=== PATIENT | male | born 1940 | race Caucasian/White ===

== ENCOUNTER 2023-09-01 13:56 | Outpatient (AMB) | payer OTHER, SELFPAY ==
--- NOTE | 2023-09-01 14:01 | A.OFFVIS_ITS ---
Intake Vital Signs 09/01/23 14:05 Height 5 ft 2 in Weight 134 lb BMI 24.5 BP 98/74 Blood Pressure Location Lt brachial Position Sitting Pulse 77 Pulse Source Pulse Oximeter Pulse Oximetry (%) 96 Oxygen Delivery Method Room Air Intake Visit Reasons: 03/10/23 Letter sent NPV-Memory Deficit-LVM Intake Note: Patient presents for memory deficit. patient states im having some issues with my memory,i also have dizziness spells all the time.. Allergies No Known Allergies Allergy (Verified 09/01/23 14:07) Medication List - Last Reconciled 09/01/23 by Buddy Glaser CNP albuterol sulfate 90 mcg/actuation inhalation atorvastatin 80 mg PO DAILY carvedilol 3.125 mg PO BID duloxetine 20 mg PO DAILY losartan 25 mg PO DAILY omeprazole 20 mg PO DAILY trazodone 50 mg PO BEDTIME HPI HPI Comments History of Present Illness Details 83 y/o male patient presents with his wi fe for dizziness, gait imbalance and forgetfulness. Pt reports he had a cervical and lumbar surgery done 2 years ago and he stopped walking after the surgery. He tried physical therapy but he still has back pain and bilateral legs weakness. He used to use walker, but his weakness has been worsened and now uses wheelchair. He has hx of central apnea, but not compliant with CPAP. Pt reports vertigo, states that always feels dizzy and room spinning sensation. He has not have ENT evaluation or vestibular therapy done. Pt also reports memory loss, can't remember things, and forgetfulness. He has difficulty remembering family and friends' name. He is confused of day and misplace things. He has family hx of Alzheimer. His takes care of bills. [facility] Surgical History (Updated 09/01/23 @ 14:10 by ALLA Hoff) H/O heart surgery H/O cervical spine surgery Hx of cholecystectomy Family History (Updated 09/01/23 @ 14:11 by ALLA Hoff) Father Cancer Brother Cancer Social History (Updated 09/01/23 @ 14:11 by ALLA Hoff) Alcohol intake: never Patient Tobacco Use Status: Never used Tobacco Review of Systems Const All systems reviewed & are unremarkable except as noted in HPI and below ENT Reports Normal hearing present Neuro Reports Normal hearing present Physical Exam Vital Signs: Last Vital Signs Pulse 77 09/01/23 14:05 BP 98/74 09/01/23 14:05 Pulse Ox 96 09/01/23 14:05 Oxygen Delivery Method Room Air 09/01/23 14:05 BMI result Body Mass Index 24.5 Const General: cooperative and tired appearing Nutritional Appearance: average body habitus Orientation/consciousness: oriented to person Limitations: wheelchair Neck Neck: Yes full ROM and Yes supple Resp Effort & Inspection: normal respiratory effort and able to speak in complete sentences Neuro Other: arithritis on his bilateral hands General: oriented to person and Unable to assess gait Cranial nerves: Yes Bilaterally intact EOM present, Yes Normal facial strength present, Yes Midline tongue present, Yes Normal hearing present, Yes Ability to bilaterally rotate head present and Yes Ability to bilaterally elevate shoulders present Cognition (Neuro): normal cognition Gait exam (Neuro): Unable to assess gait Motor exam (neuro): 5/5 motor strength present throughout, Pronator motor function not present and Tremors during motor activity present (mild bilateral hands action tremor.) Psych Appearance: grossly normal Mental Status: mental status grossly normal Speech and movement: Normal speech and movement present Affect: normal affect Orientation What is the (year) (season) (date) (day) (month)?: month Where are we (state) (county) (town or city) (hospital) (floor)?: state, county and hospital/clinic Registration Name of 3 unrelated objects clearly and slowly, then ask patient to repeat all 3 of them. (1st repeat determines score. Make sure they can repeat all three): object 2 Attention & Calculation (CHOOSE ONE) Ask pt to begin with 100 & count backward by 7. Stop after 5 repeats. If pt cannot ask them to spell the word WORLD backward.: 93 Recall Ask patient to repeat the 3 items from question #3.: object 2 Language Show patient a wristwatch & ask what it is. Repeat for pencil.: watch and pencil Ask the patient to repeat the phrase 'No ifs, ands, or buts' after you.: incorrect Ask the patient to 'take a piece of paper with their right hand' 'fold paper in half' 'place paper on floor': take paper in right hand, fold paper in half and place paper on floor Print the sentence 'CLOSE YOUR EYES' on a piece. If patient actually closes eyes then score.: followed written direction Give patient a blank piece of paper & ask to write a sentence. Score if it contains a noun & verb.: sentence contains subject and verb Score Score: 14 Assessment & Plan Assessment & Plan (1) Vertigo: Code(s): R42 - Dizziness and giddiness (2) Dementia: Code(s): F03.90 - Unspecified dementia, unspecified severity, without behavioral disturbance, psychotic disturbance, mood disturbance, and anxiety (3) Bilateral leg weakness: Code(s): R29.898 - Other symptoms and signs involving the musculoskeletal system Plan Advised patient to try vestibular therapy for vertigo. Encouraged patient to do daily gentle exercise, try to walk daily, 10 min, three times a day. Stressed CPAP compliance, resume CPAP. MMSE score 14 today, however his primary language is Micronesian and the score might not be accurate. Orders: Orders PT Evaluation and Treatment 12 Weeks R42 - Dizziness and giddiness Coding Level of Care Code New Pt Level 4 (07448) Diagnoses Vertigo R42 Dementia F03.90 Bilateral leg weakness R29.898
[2023-09-01 14:05] VITALS: BP 98/74; PULSE 77; O2SAT 96; BMI 24.5
== END 2023-09-01 15:24 | disposition home or self-care (01) ==
PROVIDERS: PCP Internal Medicine; Visit Provider Nurse Practitioner Family
DX: R42 Dizziness and giddiness (principal); F03.90 Unspecified dementia, unspecified severity, without behavioral disturbance, psychotic disturbance, mood disturbance, and anxiety; R29.898 Other symptoms and signs involving the musculoskeletal system
CPT/HCPCS: 99204

== ENCOUNTER → 2023-09-01 13:56 | Outpatient (BNVA) | payer OTHER, SELFPAY | PROVIDERS: PCP Internal Medicine; Visit Provider Nurse Practitioner Family ==

== ENCOUNTER 2024-02-18 09:59 | Outpatient (AMB) | payer OTHER, SELFPAY ==
[2024-02-18 10:08] VITALS: BP 92/58; BMI 24.0
--- NOTE | 2024-02-18 10:08 | A.OFFVIS_ITS ---
Vital Signs 02/18/24 10:08 Height 5 ft 2 in Weight 131 lb BMI 24.0 BP 92/58 L Blood Pressure Location Lt brachial Position Sitting Intake Visit Reasons: 4 mo f/u -Memory Deficit-Conf Admissions Recruiter Required: Yes Admissions Recruiter Name: pamela [id number] Accompanied by: Spouse Allergies No Known Allergies Allergy (Verified 02/18/24 10:14) Medication List - Last Reconciled 02/18/24 by Buddy Glaser CNP albuterol sulfate 90 mcg/actuation inhalation atorvastatin 80 mg PO DAILY carvedilol 3.125 mg PO BID duloxetine 40 mg PO DAILY furosemide 20 mg PO Q OTHER DAY losartan 25 mg PO DAILY meclizine 25 mg PO TID omeprazole 20 mg PO DAILY sacubitril-valsartan 24-26 mg (Entresto) 1 tab PO BID trazodone 50 mg PO BEDTIME HPI Comments Details: 83 y/o male patient presents with his for dizziness, gait imbalance and forgetfulness. teasel setter ID #[id number] utilized. Pt reports constant dizziness. He was evaluated by vestibular rehab, can't identify any activities that exacerbate symptoms, has some relief when lays down. Positional testing was negative for BPPV. And the dizziness symptoms do not appear amendable to further vestibular rehab. Pt continues to have vertigo, states that always feels dizzy and room spinning sensation. Pt had a carotid US done and the result was indicated bilateral carotid atherosclerosis, under 49 % stenosis in ICA. Also, patient is on Losartan 25 mg, carvedilol 3.125 mg daily. His BP runs slightly low today, 92/58. Pt reports he had a cervical and lumbar surgery done 2 years ago and he stopped walking after the surgery. He tried physical therapy but he still has back pain and bilateral legs weakness. He used to use walker, but his weakness has been worsened and now uses wheelchair. He has hx of central apnea, but not compliant with CPAP. Pt has old CPAP but his says it does not work. Pt does not want to do repeat sleep study and does not want to use CPAP. He had ER visit last week for acute hypoxemic respiratory failure. states that he had a brain MRI or CT done. The brain MRI and CT result reveals no acute infarct, mass effect or intracranial hemorrhage. 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 Pt also reports memory loss, can't remember things, and forgetfulness. He has difficulty remembering family and friends' name. He is confused of day and misplace things. He has family hx of Alzheimer. His takes care of bills. [facility] Surgical History H/O heart surgery H/O cervical spine surgery Hx of cholecystectomy Family History Father Cancer Brother Cancer Social History Alcohol intake: never Patient Tobacco Use Status: Never used Tobacco Review of Systems Const All systems reviewed & are unremarkable except as noted in HPI and below ENT Reports Normal hearing present Neuro Reports Normal hearing present Physical Exam Vital Signs: Last Vital Signs BP 92/58 L 02/18/24 10:08 BMI result Body Mass Index 24.0 Const General: cooperative and tired appearing Nutritional Appearance: average body habitus Orientation/consciousness: oriented to person Limitations: wheelchair Neck Neck: Yes full ROM and Yes supple Resp Effort & Inspection: normal respiratory effort and able to speak in complete sentences Neuro Other: arithritis on his bilateral hands General: oriented to person and Unable to assess gait Cranial nerves: Yes Bilaterally intact EOM present, Yes Normal facial strength present, Yes Midline tongue present, Yes Normal hearing present, Yes Ability to bilaterally rotate head present and Yes Ability to bilaterally elevate shoulders present Cognition (Neuro): normal cognition Gait exam (Neuro): Unable to assess gait Motor exam (neuro): 5/5 motor strength present throughout, Pronator motor function not present and Tremors during motor activity present (mild bilateral hands action tremor.) Psych Appearance: grossly normal Mental Status: mental status grossly normal Speech and movement: Normal speech and movement present Affect: normal affect Assessment & Plan Assessment & Plan (1) Vertigo: Code(s): R42 - Dizziness and giddiness Category: Medical (2) Dementia: Code(s): F03.90 - Unspecified dementia, unspecified severity, without behavioral disturbance, psychotic disturbance, mood disturbance, and anxiety Category: Medical Plan Advised patient to discuss and re-evaluate his BP medications for dizziness. Advised patient to resume CPAP. Coding Level of Care Code Est Pt Level 3 (83689) Diagnoses Vertigo R42 Dementia F03.90
== END 2024-02-18 10:59 | disposition home or self-care (01) ==
PROVIDERS: PCP Internal Medicine; Visit Provider Nurse Practitioner Family
DX: R42 Dizziness and giddiness (principal); F03.90 Unspecified dementia, unspecified severity, without behavioral disturbance, psychotic disturbance, mood disturbance, and anxiety
CPT/HCPCS: 99213

== ENCOUNTER → 2024-02-18 09:59 | Outpatient (BNVA) | payer OTHER, SELFPAY | PROVIDERS: PCP Internal Medicine; Visit Provider Nurse Practitioner Family | DX: R42 Dizziness and giddiness (principal); F03.90 Unspecified dementia, unspecified severity, without behavioral disturbance, psychotic disturbance, mood disturbance, and anxiety | CPT/HCPCS: 99212 ==